=== PATIENT | female | born 2000 | race Two or more races ===

== ENCOUNTER 2023-05-31 08:38 | Emergency (ER) | payer MEDICAID ==
[~2023-05-31] VITALS: Ht 157.5 cm; Wt 52.2 kg
[2023-05-31 09:24] LABS: APPEARANCE,URINE CLEAR (CLEAR); BILIRUBIN,URINE NEGATIVE (NEGATIVE); BLOOD, URINE 3+ Ery/uL (NEGATIVE); COLOR,URINE DARK YELLOW (YELLOW); KETONES,URINE NEGATIVE (NEGATIVE); LEUKOCYTE ESTERASE ,URINE NEGATIVE (NEGATIVE); NITRITE, URINE NEGATIVE (NEGATIVE); PROTEIN,URINE NEGATIVE (NEGATIVE); UGLUCOSE NEGATIVE (NEGATIVE)
[2023-05-31 09:25] LABS: PREGNANCY TEST URINE QUAL NEGATIVE (NEGATIVE)
[2023-05-31 09:26] LABS: ADD URINE CULTURE NO; BACTERIA,URINE Rare /HPF (None Seen); SQUAMOUS EPITHELIAL CELL,UR Few /HPF (None Seen); WBC,URINE 0-2 /HPF (0-3)
[2023-05-31] MEDS ORDERED: KETOROLAC TROMETHAMINE INJ 30 MG/ML VIAL IV ONE (09:30)
[2023-05-31] MEDS ORDERED: IV NS 0.9% 1,000 ML BAG IV ONE (09:30)
[2023-05-31] MEDS ORDERED: KETOROLAC TROMETHAMINE 15 MG/ML VIAL ONE (09:35)
[2023-05-31 09:42] LABS: BASOPHILS % (AUTO) 0.2 % (0.0-2.0); EOSINOPHILS # (AUTO) 0.1 K/uL (0.0-0.7); HEMATOCRIT 37 % (33-45); HEMOGLOBIN 12.3 g/dL (11.5-14.8); LYMPHOCYTES # (AUTO) 1.6 K/uL (0.8-4.8); LYMPHOCYTES % (AUTO) 25.1 % (20.0-44.0); MEAN CORPUSCULAR HEMOGLOBIN 28 PG (26.0-33.0); MEAN CORPUSCULAR HGB CONC 33 g/dl (31.0-36.0); MEAN CORPUSCULAR VOLUME 82 fL (82-100); MONOCYTES # (AUTO) 0.4 K/uL (0.1-1.30); MONOCYTES % (AUTO) 5.7 % (2.0-12.0); NEUTROPHILS # (AUTO) 4.3 K/uL (1.8-8.9); PLATELET COUNT (AUTO) 257 K/uL (150-450); RED BLOOD CELL COUNT(AUTO) 4.48 MIL/uL (4.0-5.2); RED CELL DISTRIBUTION WIDTH 14.7 % (11.5-15.0); WHITE BLOOD COUNT (AUTO) 6.4 K/uL (4.3-11.0)
[2023-05-31 09:50] LABS: CREATININE 0.9 mg/dL (0.6-1.3); POTASSIUM 3.9 mmol/L (3.5-5.1)
[2023-05-31] MEDS ORDERED: IBUP-1955 PO (09:51)
[2023-05-31 12:23] VITALS: BP 129/79; TEMP 98.1; O2SAT 98
== END 2023-05-31 12:24 | disposition home or self-care (01) ==
LOC: ER 08:59
DX: R55 Syncope and collapse (principal); N83.291 Other ovarian cyst, right side; D25.2 Subserosal leiomyoma of uterus; N94.6 Dysmenorrhea, unspecified; J45.909 Unspecified asthma, uncomplicated
CPT/HCPCS: 99285; 96374; 76856; 96361; 93005; 85025; 80048; 84703; 81001; 36415; 86850; 82962; J7030; J1885

== ENCOUNTER 2023-07-28 19:40 | Emergency (ER) | payer MEDICAID ==
[~2023-07-28] VITALS: Ht 162.6 cm; Wt 68.0 kg
[~2023-07-28 19:40] MED LIST: IBUP-1955 PO
[2023-07-28 20:32] VITALS: BP 121/76; TEMP 97.8
[2023-07-28] MEDS ORDERED: CEPHALEXIN MONOHYDRATE 500 MG CAPSULE PO ONE ×2 (20:38→21:00)
[2023-07-28] MEDS ORDERED: IBUPROFEN 600 MG TABLET ONE (20:38)
[2023-07-28] MEDS ORDERED: CEPH500C2 PO (20:40)
[2023-07-28 20:41] VITALS: O2SAT 99
[2023-07-28] MEDS ORDERED: IBUPROFEN 600 MG TABLET PO ONE (21:00)
== END 2023-07-28 20:43 | disposition home or self-care (01) ==
LOC: ER 19:50
DX: L03.011 Cellulitis of right finger (principal); J45.909 Unspecified asthma, uncomplicated